=== PATIENT | female | born 1990 | race Caucasian/White ===

== ENCOUNTER 2018-10-28 01:36 | Inpatient (IN) | payer MEDICAID ==
[2018-10-28] VITALS (52 sets, daily range): BP systolic 78–161; BP diastolic 28–117
[~2018-10-28] VITALS: Ht 162.6 cm; Wt 90.7 kg
--- NOTE | 2018-10-28 01:56 | NUR ---
PT [place] FROM [place]. PER RA, WAS WITH BOYFRIEND AND BECAME UNRESPONSIVE. PER RA, POSSIBLE OD ON HEROIN/METH/SOMA OVERDOSE, UNKNOWN AMOUNT. NOTED DILATED, FIXED PUPILS. NOTED SHALLOW RESPIRATIONS. PT PLACED ON CONTINUOUS PUBLIC ADMINISTRATION PROFESSOR, AT BEDSIDE.
--- NOTE | 2018-10-28 01:58 | NUR ---
MD AND RT AT BEDSIDE FOR INTUBATION Addendum: 10/28/18 at 0301 by MARSHA VENT SETTINGS: RATE:18 TIDAL VOLUME: 450 O2: 100% PEAK: 50 PEEP: 5
--- NOTE | 2018-10-28 01:59 | NUR ---
HOUSE SUP CALLED FOR BED REQUEST
[2018-10-28] MEDS ORDERED: PROPOFOL 100 ML ONE (02:04)
--- NOTE | 2018-10-28 02:23 | NUR ---
16FR neil catheter inserted per sterile protocal. Immediate output 50ML of urine, color STRAW, clarity CLEAR. URINE SPECIMEN OBTAINED AND SENT TO THE LAB.
--- NOTE | 2018-10-28 02:25 | NUR ---
PT ORALLY INTUBATED WITH 7.5 ETT SECURED @ 23 CM AT THE LIP ON VENT WITH SETTINGS OF AC18 VT450 PEEP+5 100%. COLOR CHANGE ON CO2 DETECTOR ALONG WITH BILATERAL CHEST RISE AND EQUAL BREATH SOUNDS. NO SIGNS OF RESPIRATORY DISTRESS NOTED AT THIS TIME. SUCTIONED MODERATE AMOUNT OF WHITE THICK SECRETIONS. VENT PLUGGED INTO RED OUTLET. VENT ALARMS SET AND AUDIBLE. AMBU BAG AT BEDSIDE. WILL CONTINUE TO MONITOR THE PT. WAITING ON FURTHER ORDERS. Addendum: 10/28/18 at 0244 by FLASH LOVETT RT Amended: Links added.
--- NOTE | 2018-10-28 02:29 | NUR ---
POISON CONTROL CONTACTED AND SPOKE TO GLADIS, WAS INFORMED TO CONTINUE SUPPORTIVE CARE W/ LAB DRAW FOR CBC, CMP, ASA, URINALYSIS AND TOX SCREEN. NO FURTHER ADVICE FOR TREATMENT GIVEN AT THIS TIME. MADE AWARE
[2018-10-28] MEDS ORDERED: SUCCINYLCHOLINE CHLORIDE 20 MG/ML VIAL IV ONE (02:30)
[2018-10-28] MEDS ORDERED: IV NS 0.9% 1,000 ML BAG IV ONE (02:30)
[2018-10-28] MEDS ORDERED: PROPOFOL 1,000 MG/100 ML BOTTLE IV ONE (02:30)
[2018-10-28] MEDS ORDERED: ETOMIDATE 2 MG/ML VIAL IV ONE (02:30)
[2018-10-28] MEDS ORDERED: FAMOTIDINE/PF INJ 20 MG/2 ML VIAL IV ONE ×2 (02:30→02:31)
--- NOTE | 2018-10-28 02:30 | NUR ---
BLOOD DRAWN BY MANAGER HOSP[facility].
[2018-10-28 02:42] LABS: APPEARANCE,URINE CLEAR (CLEAR); BILIRUBIN,URINE NEGATIVE (NEGATIVE); BLOOD, URINE NEGATIVE Ery/uL (NEGATIVE); COLOR,URINE YELLOW (YELLOW); HEMATOCRIT 38 % (33-45); HEMOGLOBIN 12.9 g/dL (11.5-14.8); KETONES,URINE 1+ (NEGATIVE); LEUKOCYTE ESTERASE ,URINE TRACE (NEGATIVE); LYMPHOCYTES # (AUTO) 2.3 /CMM (0.8-4.8); LYMPHOCYTES % (AUTO) 65.6 % (20.0-44.0); MEAN CORPUSCULAR HGB CONC 34 g/dl (31.0-36.0); MEAN CORPUSCULAR VOLUME 86 fL (82-100); MONOCYTES # (AUTO) 0.3 /CMM (0.1-1.30); MONOCYTES % (AUTO) 7.9 % (2.0-12.0); NEUTROPHILS # (AUTO) 0.8 /CMM (1.8-8.9); NEUTROPHILS % (AUTO) 21.5 % (43.0-81.0); NITRITE, URINE NEGATIVE (NEGATIVE); PH,URINE 5.5 (5.0-8.0); PLATELET COUNT (AUTO) 256 /CMM (150-450); PROTEIN,URINE NEGATIVE (NEGATIVE); UGLUCOSE NEGATIVE (NEGATIVE); UROBILINOGEN,URINE 0.2 EU/dL (0.2); WHITE BLOOD COUNT (AUTO) 3.6 K/uL (4.3-11.0)
[2018-10-28 02:53] LABS: CALCIUM, SERUM 8.5 mg/dL (8.5-10.1); CARBON DIOXIDE 23 mmol/L (21-32); CHLORIDE 104 mmol/L (98-107); CREATININE 0.7 mg/dL (0.6-1.3); GLUCOSE 85 mg/dL (74-106); POTASSIUM 3.4 mmol/L (3.5-5.1); SODIUM SERUM 143 mmol/L (136-145); UREA NITROGEN, BLOOD 12 mg/dL (7-18)
--- NOTE | 2018-10-28 02:53 | NUR ---
GUADALUPE CALLED. DR CHAHAL
[2018-10-28 02:55] LABS: BACTERIA,URINE Moderate /HPF (None Seen); RBC,URINE 0-2 /HPF (0-2); SQUAMOUS EPITHELIAL CELL,UR Few /HPF (None Seen)
[2018-10-28 02:57] LABS: CREATINE KINASE, TOTAL 86 U/L (26-192)
--- NOTE | 2018-10-28 02:58 | NUR ---
Jacbo ann in [facility] - 10/28/18 at 0258 by MARSHA MD AND RT AT BEDSIDE FOR INTUBATION
[2018-10-28 02:59] LABS: ALANINE AMINOTRANSFERASE 25 U/L (12-78); ALBUMIN 3.4 g/dL (3.4-5.0); ALCOHOL, BLOOD < 3 mg/dL (0-0); ALKALINE PHOSPHATASE 59 U/L (46-116); ASPARTATE AMINOTRANSFERASE 19 U/L (15-37); BILIRUBIN,DIRECT 0.1 mg/dL (0.0-0.2); BILIRUBIN,TOTAL 0.2 mg/dL (0.2-1.0); TOTAL PROTEIN, SERUM 7.3 g/dL (6.4-8.2)
[2018-10-28 03:00] LABS: ACETAMINOPHEN 0 ug/ml (10-30); SALICYLATE 1.6 mg/dL (2.8-20.0)
--- NOTE | 2018-10-28 03:00 | NUR ---
RT AT BEDSIDE FOR ABG
--- NOTE | 2018-10-28 03:28 | NUR ---
GAVE REPORT TO ED RN FOR AMANDA
[2018-10-28] MEDS ORDERED: MAG HYDROX/AL HYDROX/SIMETH 30 ML UDC PO PRN (03:30)
[2018-10-28] MEDS ORDERED: Z GUARD REMEDY 2 OZ OINT TP PRN (03:30)
[2018-10-28] MEDS ORDERED: HYDROCODONE/APAP 5/325MG 1 EACH TABLET PO PRN (03:30)
[2018-10-28] MEDS ORDERED: MAGNESIUM HYDROXIDE 30 ML UDC PO PRN (03:30)
[2018-10-28] MEDS ORDERED: ZOLPIDEM TARTRATE 5 MG TABLET PO PRN (03:30)
[2018-10-28] MEDS ORDERED: ACETAMINOPHEN 325 MG TABLET PO PRN (03:30)
[2018-10-28 03:38] LABS: ABG BASE EXCESS -4.6 mmol/L; ABG OXYGEN SATURATION 99.2 % (92.0-98.5); ABG PCO2 36.1 mmHg (35.0-45.0); ABG PH 7.364 (7.350-7.450); AaDO2 166.9 mmHg; COHb 0.3 % (0.5-1.5); MetHb 0.5 % (0.0-1.5); O2Hb 98.4 % (94.0-97.0); SITE, ABG Left Brachial; VENT MODE, BG AC 18 450 +5 100%
--- NOTE | 2018-10-28 03:42 | NUR ---
COLBY CALLED TO READ RADIOLOGY REPORT
--- NOTE | 2018-10-28 03:55 | NUR ---
PT TRANSFERRED TO ICU BED 253 PER ACLS PROTOCOL
[2018-10-28] MEDS: IV NS 0.9% 1,000 ML IV SCH ×3 (04:04→19:34)
[2018-10-28] MEDS: PROPOFOL 100 ML IV PRN ×8 (04:45→22:21)
--- NOTE | 2018-10-28 05:14 | NUR ---
FIELD RADIO OPERATOR PT WAS ADMITTED FROM ER WITH DIAGNOSIS DRUG OD, RESPIRATORY FAILURE, ACUTE TOXIC ENCEPHALOPATHY. DRUG SCREEN POSITIVE FOR OPIATES, AMPHETAMINE, BENZODIAZEPINES, CANNABINOIDS & GHB. PUPILS 3 MM. REACTIVE. MOVES ALL EXTREMITIES, LEGS ARE WEAK.PT IS ON VENTILATOR AC MODE. VSS, AFEBRILE, SCOPE-SR. NGT TO LIS, F/C DRAINS SUFFICIENT AMT. OF CLEAR STRAW COLOR URINE. MAIN IV NS @ 150 ML/H, PT IS SEDATED WITH PROPOFOL DRIP. IV SITES INTACT. SOFT WRIST RESTRAINTS ON. WILL CONTINUE CLOSE MONITORING.
--- NOTE | 2018-10-28 06:10 | NUR ---
PT GOT SEVERE AGITATED. PULLED OUT IV ON RIGHT HAND. PROPOFOL DRIP IS ALREADY TITRATED TO MAX 50 MCG/KG/MIN. SOFT WRIST RESTRAINTS ON. M-D WAS CALLED. HE ORDERED TO TITRATE PROPOFOL DRIP UP TO 100 MCG/KG/MIN & ORDERED TO INSERT MIDLINE /PT IS HARD STICK/.
--- NOTE | 2018-10-28 07:45 | NUR ---
DELI DEPARTMENT MANAGER: pt.is deeply sedated now with 100mcg/kg/m Diprivan, had severe agitated reactions, reactive by pain now, will decrease gtt rate and observe, SR, SBP over 100 below 150, O2sat.0ver 98% on 40% FiO2, ETT 1 cm above awais/will s/w needle control cheniller, K+3.4, charge nurse is in room/updated, 3 rings were removed and placed in pt.bag/noted in form, NGT to LIS/light brown secretion
--- NOTE | 2018-10-28 07:50 | NUR ---
CHARGE AUDITOR: waiting midline placement by report
[2018-10-28] MEDS ORDERED: SUCCINYLCHOLINE CHLORIDE 20 MG/ML VIAL ONE (08:52)
[2018-10-28] MEDS ORDERED: ETOMIDATE 2 MG/ML VIAL ONE (08:52)
--- NOTE | 2018-10-28 09:20 | NUR ---
RHIC SYSTEMS SAFETY ENGINEER: is in room, notified re pt.current status, history, charge nurse confirmed: no cardiac/respiratory arrest with admission, VS, sedation level, O2sat., severe agitated episodes, ordered: adjust ETT position by pull 2 cm out
--- NOTE | 2018-10-28 09:22 | NUR ---
SPOKE WITH RN AT 9:15 AM. PATIENT UNSTABLE TO COME DOWN. RN WILL CALL RADIOLOGY.
--- NOTE | 2018-10-28 09:30 | NUR ---
BLANKER OPERATOR: plan by : keep pt.sedated well with suction on AC mode today, will wean tomorrow
--- NOTE | 2018-10-28 09:55 | NUR ---
DIRECTOR OF ASSESSING: pt.is able to open eyes spontaneously, restless, ST 100-110, pt.friends are in room/notified: don't touch pt., increased Diprivan sedation to 90 mcg/kg/m, RT is notified re ETT pull out 2 cm order
[2018-10-28] MEDS: POTASSIUM CL. PREMIX PERIPHER. 50 ML IV SCH ×2 (11:11→12:21)
--- NOTE | 2018-10-28 11:30 | NUR ---
PERFORMING ARTS TECHNICIANS: is in room, updated with pt.sedation level, history, VS, agitated episodes, IVF, IV access, order for SIMV/wean tomorrow, ordered: Ativan 1 mg q4h IV prn for agitation. Pt.is unable to be transfer for CT now, high sedation level/AC mode, RT adjusted ETT/22 cm at lips now
--- NOTE | 2018-10-28 12:00 | NUR ---
RT NOTES ETT PULLED BACK 2CM PER DR. HORNE REQUEST. 7.5 ETT AT 23CM AT THE LIP INITIALLY. PULLED BACK 2CM. ETT NOW AT 21CM AT THE LIP. BILAT.B/S AUSCULTATED.
[2018-10-28] MEDS: LORAZEPAM INJ 2 MG/ML VIAL IV PRN ×2 (12:57→19:17)
--- NOTE | 2018-10-28 14:17 | NUR ---
FOLLOWED UP WITH RN AT 1405, PATIENT STILL UNSTABLE FOR CT
--- NOTE | 2018-10-28 15:00 | NUR ---
ETL APPLICATION DEVELOPER: unable to do PM/bedbath care now, pt.is on max Diprivan rate, got Ativan, but easy to get severe restless with any activity, have had attempts to touch ETT, SR/ST max 110, SBP over 100 below 150, O2sat. over 98%, GT to LIS still with brownish secretion, no blood, radiology department updated with pt.condition, plan: SIMV mode tomorrow, notified RT.
--- NOTE | 2018-10-28 17:37 | NUR ---
GOLF CLUB WEIGHER: pt.is sedated with 90 mcg/kg/m Diprivan now, rest, but easy to show activity/coughing with touch/suction, SR/ST max 105, SBP over 100, O2sat. over 98%, no SOB, PM/skin care/bedbath is done, pt.mother is in room/notified re pt.current condition, DO status, VS, sedation, orders, POC, spoke with charge nurse too.
--- NOTE | 2018-10-28 19:00 | NUR ---
REFRIGERATING TECHNICIAN NOTES RECEIVED PATIENT ORALLY INTUBATED ,TO THE VENTILATOR ON AC MODE,SEDATED WITH PROPOFOL DRIP (MCG/KG/MIN) BUT STILL OCCASIONALLY GETS AGITATED.ON BILATERAL SOFT WRIST RESTRAINTS. NOT IN ANY DISTRESS,MOVES ALL EXTREMITIES.NGT TO LIWS .COMFORT CARE DONE.WILL CLOSELY MONITOR ,PRN SEDATION NEEDED.
--- NOTE | 2018-10-28 19:33 | NUR ---
Asha Stark spoke with SUZAN Matute, patient will be extubated on 10-29-[address] head without will probably be perform. Order still active and awaiting for RN to call when pt. is ready.
--- NOTE | 2018-10-28 22:00 | NUR ---
FAMILY AT BEDSIDE,UPDATED ON PATIENT'S STATUS. PATIENT REMAINS SEDATED ,STILL OCCASIONALLY WAKES UP AND TRIES TO GE OFF RESTRAINTS.
[2018-10-29] VITALS (33 sets, daily range): BP systolic 93–153; BP diastolic 49–74
--- NOTE | 2018-10-29 00:05 | NUR ---
SALES AGENT FINANCIAL REPORT SERVICE NOTES ATTEMPTED TO GO DOWN ON PROPOFOL DRIP TO 80 MCG/KG/MIN. BUT PATIENT AWAKENS EASILY RIGHT AWAY,MOVING AND TRYING TO GET OFF RESTRAINTS.
[2018-10-29] MEDS: PROPOFOL 100 ML IV PRN ×4 (00:37→07:22)
[2018-10-29] MEDS: IV NS 0.9% 1,000 ML IV SCH ×2 (02:06→07:22)
--- NOTE | 2018-10-29 03:30 | NUR ---
SLOWLY TITRATING DOWN ON PROPOFOL TOLERATED.V/S REMAINS STABLE.
--- NOTE | 2018-10-29 04:00 | NUR ---
PROPOFOL DRIP NOW AT 70 MCG/KG/MIN.WAKING UP AND MOVING EXTREMITIES BUT NOT AGITATED.
[2018-10-29 05:26] LABS: BASOPHILS % (AUTO) 0.3 % (0.0-2.0); HEMATOCRIT 35 % (33-45); LYMPHOCYTES # (AUTO) 0.9 /CMM (0.8-4.8); LYMPHOCYTES % (AUTO) 9.3 % (20.0-44.0); MEAN CORPUSCULAR HGB CONC 35 g/dl (31.0-36.0); MEAN CORPUSCULAR VOLUME 86 fL (82-100); MONOCYTES # (AUTO) 0.4 /CMM (0.1-1.30); MONOCYTES % (AUTO) 4.6 % (2.0-12.0); NEUTROPHILS # (AUTO) 8.1 /CMM (1.8-8.9); NEUTROPHILS % (AUTO) 85.8 % (43.0-81.0); PLATELET COUNT (AUTO) 231 /CMM (150-450); RED BLOOD CELL COUNT(AUTO) 4.05 MIL/uL (4.0-5.2); WHITE BLOOD COUNT (AUTO) 9.4 K/uL (4.3-11.0)
[2018-10-29 05:43] LABS: CALCIUM, SERUM 7.9 mg/dL (8.5-10.1); CREATININE 0.4 mg/dL (0.6-1.3); MAGNESIUM 1.8 mg/dL (1.8-2.4); POTASSIUM 3.2 mmol/L (3.5-5.1)
--- NOTE | 2018-10-29 06:00 | NUR ---
MORE RESTLESS,KICKING LEGS AND TRYING TO LIFT BOTH ARMS.PROPOFOL DRIP BACK TO 75 MCG/KG/MIN.
--- NOTE | 2018-10-29 07:00 | NUR ---
REPORT GIVEN TO CESAR MARES.
--- NOTE | 2018-10-29 07:05 | NUR ---
AEROSPACE ASSEMBLER INITIAL NOTES RECEIVED PT IN RESTING IN BED. NO SOB OR ACU5TE SIGNS OF DISTRESS NOTED. BREATHING IS EVEN AND UNLABORED. PT INTUBATED. VENT SETTINGS CHECKED FOR ACCURACY. ( AC 18, TV 450, FI02 40%, PEEP 5). PT TOLERATING SETTINGS WELL. PT ON PROPOFOL DRIP INFUSING AT 70MIC/HR. PT MILDLY AGITATED, HOWEVER ABLE TO FOLLOW COMMANDS. IV TO RIGHT HANG AND LEFT EJ NOTED TO BE PATENT AND INTACT. NO REDNESS OR SIGNS CORY INFILTRATION NOTED. BED IN LO LOCKED POSITION, SIDE RAILS UP X3, CALL LIGHT WITHIN REACH. WILL CONTINUE TO MONITOR
[2018-10-29] MEDS ORDERED: DC PROPOFOL WHEN EXTUBATED XX PRN (08:00)
--- NOTE | 2018-10-29 08:45 | NUR ---
ROLL COATING MACHINE OPERATOR NOTES: PROPOFOL ADMINISTRATION PROPIODAL DRIP TURNED OFF PER DR. HORNE'S ORDER. WI SCHEDULED TO BE EXTUBATION. PT MILDLY AGITATED, ON BILATERAL SOFT WRIST RESTRAINTS FOR SELF EXTUBATION PREVENTION. PT ABLE TO FOLLOW SIMPLE COMMANDS. RT TO INITIATE SIMV MODE.
[2018-10-29] MEDS: ONDANSETRON HCL/PF 4 MG/2 ML VIAL IVP PRN (08:50)
--- NOTE | 2018-10-29 09:10 | NUR ---
WELDING MACHINE OPERATOR ARC NOTES: THERMO REGULATION PT HAD A TEMP OF 100.1. COOLING MEASURES INITIATED. ACETAMINOPHEN ADMINISTERED. TEMP RECHECKED AND IS NOW 98.9.
[2018-10-29 09:45] LABS: ABG BASE EXCESS -2.2 mmol/L; ABG OXYGEN SATURATION 97.2 % (92.0-98.5); ABG PCO2 28.6 mmHg (35.0-45.0); ABG PH 7.471 (7.350-7.450); ABG PO2 99.8 mmHg (75.0-100.0); AaDO2 152.5 mmHg; COHb 0.3 % (0.5-1.5); MetHb 0.7 % (0.0-1.5); O2Hb 96.2 % (94.0-97.0); SITE, ABG Right Radial
--- NOTE | 2018-10-29 09:50 | NUR ---
RECAPPER NOTES: EXTUBATION PT S/P EXTUBATION AT 0950. VSS. PT ON 4 L VIA NC AND SATING WELL AT 96%. RR EVEN AND UNLABORED.
--- NOTE | 2018-10-29 09:50 | NUR ---
RT PER DR DODD ORDER PATIENT WAS WEANED + EXTUBATED AND PLACED ON SUPPLEMENTAL O2 AKI WELL. PATIENT AWAKE, ALERT, NO SOB NOTED.
[2018-10-29] MEDS ORDERED: POTASSIUM CL. PREMIX PERIPHER. 50 ML IV SCH (11:01)
[2018-10-29] MEDS ORDERED: POTASSIUM CHLORIDE 20 MEQ POWDER PACKET NG ONE (11:38)
[2018-10-29] MEDS: CEFTRIAXONE 1 G in IV D5W 50 ML IV SCH (12:03)
--- NOTE | 2018-10-29 16:11 | NUR ---
RN NOTE Obtained order for crisis team consult. Informed [facility] for psyche consult. Faxed face sheet and verified in the unit. Dr. Shields is information architect.
[2018-10-29] MEDS: IV NS 0.9% 1,000 ML IV PRN (17:14)
--- NOTE | 2018-10-29 19:05 | NUR ---
CHAIN SPLITTER CLOSING NOTES PT REMAINS STABLE S/P EXTUBATION. PT CURRENTLY OMN RA AND SATING WELL AT 96%. NO ACUTE CHANGES IN CONDITION DURING SHIFT. SAFETY PRECAUTIONS REMAIN IN PLACE. INVASIVE LINES REMAIN PATENT AND INTACT. WILL ENDORSE TO SUZAN BOWMAN FOR AMANDA.
--- NOTE | 2018-10-29 19:30 | NUR ---
JUNCTION MAKER NOTE PT RECEIVED AWAKE AND ALERT. A/O X3 AND ABLE TO MAKE NEEDS KNOWN. ON ROOM AIR AND SATURATING WELL. BREATHING REGULAR AND UNLABORED. NOTED WITH NONPRODUCTIVE COUGH. HOB ELEVATED AND ON ASPIRATION PRECAUTIONS. IV CLEAN WITH NS INFUSING @75ML/HR. NO C/O PAIN OR DISCOMFORT AT THIS TIME. CALL LIGHT WITHIN REACH. WILL MONITOR.
[2018-10-30] VITALS (21 sets, daily range): BP systolic 96–123; BP diastolic 42–76
[2018-10-30] MEDS: ONDANSETRON HCL/PF 4 MG/2 ML VIAL IVP PRN ×2 (02:01→08:16)
--- NOTE | 2018-10-30 02:30 | NUR ---
MALWARE ANALYST NOTE PT NOTED WITH EMESIS X1 AND ZOFRAN 4MG IVP WAS GIVEN. NOTED WITH 3 EPISODES OF DIARRHEA AND SPECIMEN FOR CDIFF SENT TO LAB. WILL MONITOR.
[2018-10-30] MEDS: LORAZEPAM INJ 2 MG/ML VIAL IV PRN ×2 (03:07→22:58)
[2018-10-30 04:47] LABS: BASOPHILS % (AUTO) 0.3 % (0.0-2.0); EOSINOPHILS % (AUTO) 0.1 % (0.0-6.0); HEMATOCRIT 35 % (33-45); HEMOGLOBIN 11.9 g/dL (11.5-14.8); LYMPHOCYTES # (AUTO) 1.1 /CMM (0.8-4.8); LYMPHOCYTES % (AUTO) 11.3 % (20.0-44.0); MEAN CORPUSCULAR HGB CONC 34 g/dl (31.0-36.0); MEAN CORPUSCULAR VOLUME 87 fL (82-100); MONOCYTES # (AUTO) 0.4 /CMM (0.1-1.30); NEUTROPHILS # (AUTO) 8.1 /CMM (1.8-8.9); NEUTROPHILS % (AUTO) 84.3 % (43.0-81.0); PLATELET COUNT (AUTO) 211 /CMM (150-450); RED BLOOD CELL COUNT(AUTO) 4.05 MIL/uL (4.0-5.2); WHITE BLOOD COUNT (AUTO) 9.6 K/uL (4.3-11.0)
[2018-10-30 04:50] LABS: CALCIUM, SERUM 7.8 mg/dL (8.5-10.1); CREATININE 0.5 mg/dL (0.6-1.3); MAGNESIUM 1.8 mg/dL (1.8-2.4); PHOSPHORUS 2.2 mg/dL (2.5-4.9); POTASSIUM 2.9 mmol/L (3.5-5.1)
[2018-10-30] MEDS: IV NS 0.9% 1,000 ML IV PRN ×2 (06:43→22:55)
[2018-10-30] MEDS ORDERED: POTASSIUM CHLORIDE 20 MEQ POWDER PACKET PO ONE (07:30)
--- NOTE | 2018-10-30 07:40 | NUR ---
ALTERATIONS WORKROOM CLERK NOTE PT NOTED WITH ANOTHER EPISODE OF EMESIS. CLEANED PT. ALL NEEDS ATTENDED TO PROMPTLY. CRITICAL LAB POTASSIUM 2.9. SPOKE WITH MAIL EXAMINER GARY INTERNATIONAL SALES MANAGER WITH ORDERS FOR POTASSIUM 60 MEQ PO X1. ORDERS NOTED AND CARRIED OUT. CALL LIGHT WITHIN REACH. WILL ENDORSE TO NEXT SHIFT FOR CONTINUITY OF CARE.
[2018-10-30] MEDS ORDERED: K PHOS NEUTRAL 250 MG TABLET PO ONE (09:30)
[2018-10-30] MEDS: CLONIDINE HCL 0.1 MG TABLET PO SCH ×3 (09:30→21:57)
--- NOTE | 2018-10-30 09:30 | NUR ---
ICU/RN: 0930 Clonidine dose held; current anti-emetic regimen effective; pt noted with bradycardia from 50-60's.
[2018-10-30] MEDS ORDERED: HALOPERIDOL LACTATE INJ 5 MG/ML VIAL IM ONE (10:00)
[2018-10-30 10:13] LABS: AMYLASE 40 U/L (25-115); LIPASE 152 U/L (73-393)
--- NOTE | 2018-10-30 10:15 | NUR ---
ICU/RN: Pt withdrawn, low energy levels, poor appetite, does not complain of any discomfort. Denies SI. Provided support however pt remains minimally interactive. Safety measures in place. Will cont to monitor pt.
[2018-10-30] MEDS: CEFTRIAXONE 1 G in IV D5W 50 ML IV SCH (11:45)
[2018-10-30] MEDS: LOPERAMIDE HCL (2 MG CAP) 2 MG CAPSULE PO PRN ×2 (11:45→16:12)
--- NOTE | 2018-10-30 14:15 | NUR ---
ICU/RN: Face sheet faxed to GPS to f/u Psych consult with Dr Shields. Per GPS elementary secretary, to kenyetta gonzales.
--- NOTE | 2018-10-30 16:25 | NUR ---
ICU/RN: Assisted pt with hygienic care, noted with large FRANCISCO bruise, R periorbital light bruising. Asked pt whether she had a recent history of falls, pt denies, closes eyes, goes back to sleep. Pt remains guarded and withdrawn, but compliant with care. Safety measures in place. launch steward and CM updated. Will f/u with social work msw.
--- NOTE | 2018-10-30 17:25 | NUR ---
RN NOTES RECEIVED PATIENT FROM ICU, TRANSFERRED VIA ACLS PROTOCOL ACCOMPANIED MARY SULLIVAN RN AND DAWITRN. PATIENT WITH CLOSE EYE BUT IS RESPONSIVE, BARELY ANSWERS QUESTION VERBALLY BUT FOLLOWS COMMAND. ON ROOM AIR, BREATHING EVEN AND UNLABORED. NO S/S OF SHORTNESS OF BREATHE NOTED. NOTED WITH FRANCISCO BRUISE AND R PERIORBITALLIGHT BRUISING. NO COMPLAINTS OF PAIN NOTED. TELEMONITOR ATTACHED TO PATIENT; SR WITH HR ON THE 80'S. VITAL SIGNS TAKEN AND NOTED FOLLOWS: BP AT 120/86, TEMP AT 98.1, RR AT 18, SATING AT 98%. IV TO THE R HAND G 20 AND L EXTERNAL JUGULAR. WITH NS RUNNING AT 75CC/HR. PATIENT MADE COMFORTABLE. ORIENTED TO THE UNIT AND THE USE OF CALL LIGHT. SAFETY MEASURES PUT IN PLACE. WILL CONTINUE TO MONITOR PATIENT
--- NOTE | 2018-10-30 17:25 | NUR ---
ICU/RN: Pt transferred to [facility] without incident. Bedside report given to SUZAN Zimmerman. Pt's mother notified of transfer per pt request.
--- NOTE | 2018-10-30 19:25 | NUR ---
RN NOTES ENDORSED PATIENT FOR CONTINUITY OF CARE. NO CHANGES THROUGHOUT THE SHIFT. NOT ON ANY FORM OF DISTRESS. ALL NEEDS ANTICIPATED AND MET. CALL LIGHT WITHIN REACH. SAFETY PRECAUTIONS IN PLACE AT ALL TIMES
--- NOTE | 2018-10-30 19:30 | NUR ---
RN TRAUMA INITIAL NOTES Patient in bed, awake. Stable oxygen saturation on RA, sinus rhythm on the tele monitor. Patient is A/O x3, denies pain. Maintained safety, mother at the bedside. Will cont to monitor.
[2018-10-30] MEDS: DIVALPROEX SODIUM 250 MG TABLET.DR PO SCH (20:54)
[2018-10-30] MEDS: SERTRALINE HCL 50 MG TABLET PO SCH (20:55)
[2018-10-31 00:13] VITALS: BP 111/53
[2018-10-31 04:16] VITALS: BP 123/81
[2018-10-31] MEDS: CLONIDINE HCL 0.1 MG TABLET PO SCH ×2 (05:06→12:49)
--- NOTE | 2018-10-31 06:20 | NUR ---
ROTATING EQUIPMENT SPECIALIST CLOSING NOTES Patient in bed, ambulates with assist one person. Stable oxygen saturation on RA, denies shortness of breath. Sinus rhythm on the tele monitor. Generalized body pain controlled with PRN norco. IVF infusing, maintained at 75ml/hr. Patient is seen by Dr. Shields/psych for eval. this shift. Patient remains calm and cooperative, compliant with medication. Maintained safety, will endorse to oncoming RN.
[2018-10-31 07:28] LABS: BASOPHILS % (AUTO) 0.4 % (0.0-2.0); EOSINOPHILS % (AUTO) 0.4 % (0.0-6.0); HEMATOCRIT 35 % (33-45); HEMOGLOBIN 11.8 g/dL (11.5-14.8); LYMPHOCYTES % (AUTO) 26.1 % (20.0-44.0); MEAN CORPUSCULAR HGB CONC 34 g/dl (31.0-36.0); MEAN CORPUSCULAR VOLUME 86 fL (82-100); MONOCYTES # (AUTO) 0.4 /CMM (0.1-1.30); MONOCYTES % (AUTO) 5.1 % (2.0-12.0); NEUTROPHILS # (AUTO) 5.2 /CMM (1.8-8.9); PLATELET COUNT (AUTO) 222 /CMM (150-450); RED BLOOD CELL COUNT(AUTO) 4.01 MIL/uL (4.0-5.2); WHITE BLOOD COUNT (AUTO) 7.7 K/uL (4.3-11.0)
[2018-10-31 07:43] LABS: CALCIUM, SERUM 7.7 mg/dL (8.5-10.1); CREATININE 0.5 mg/dL (0.6-1.3); MAGNESIUM 1.7 mg/dL (1.8-2.4); PHOSPHORUS 2.4 mg/dL (2.5-4.9); POTASSIUM 2.9 mmol/L (3.5-5.1)
[2018-10-31 08:00] VITALS: BP 111/57
--- NOTE | 2018-10-31 08:05 | NUR ---
RN NOTES PATIENT ASLEEP, BUT EASILY AROUSED. ALERT AND ORIENTED X4 BREATHING EVEN AND UNLABORED WITH NO DISTRESS NOTED. ON LINING PRINTER HR OF 75. PATIENT DENIES PAIN AT THIS TIME. ASSISTED PATIENT TO RESTROOM. IV SITE INTACT AND PATENT WITH CONTINUOUS FLUIDS ORDERED. ALL SAFETY MEASURES DONE. BED LOW AND LOCKED POSITIONS. WILL CONTINUE TO MONITOR
[2018-10-31] MEDS: SERTRALINE HCL 50 MG TABLET PO SCH (08:59)
[2018-10-31] MEDS: DIVALPROEX SODIUM 250 MG TABLET.DR PO SCH ×2 (08:59→13:28)
[2018-10-31] MEDS: Magnesium 1GM/D5W 100ML PREMIX 100 ML IV SCH ×2 (10:24→11:31)
[2018-10-31] MEDS ORDERED: NEUTRA PHOS 1 POWD.PACKET PO ONE (11:00)
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
[2018-10-31 12:00] VITALS: BP 116/68
[2018-10-31] MEDS: POTASSIUM CHLORIDE 20 MEQ TAB.PRT.SR PO SCH ×3 (12:49→14:31)
[2018-10-31] MEDS: CEFTRIAXONE 1 G in IV D5W 50 ML IV SCH (12:54)
[2018-10-31] MEDS: IV NS 0.9% 1,000 ML IV PRN (14:26)
[2018-10-31 16:00] VITALS: BP 105/68
--- NOTE | 2018-10-31 16:25 | NUR ---
RN NOTES PATIENT REMAINS STABLE WITH NO DISTRESS NOTED. DISCHARGE INSTRUCTIONS PROVIDED TO PATIENT AND MOTHER. VERBALIZED UNDERSTANDING. ALL BELONGINGS WITH PATIENT AND MOTHER. ALL PAPERWORK SIGNED. REMOVED IV, CATH INTACT. SKIN INTACT AND WARM TO TOUCH. PATIENT LEFT THE UNIT AT 1625
== END 2018-10-31 16:27 | disposition home or self-care (01) | DRG 816 ==
LOC: ER 01:38 → ICU 03:33 → TELE1 10-30 17:09 → MEDSG1 10-31 11:44
PROVIDERS: ADMIT Family Medicine; ATTEND Nurse Practitioner Acute Care
PROC: 5A1945Z Respiratory Ventilation, 24-96 Consecutive Hours (ICD-10-PCS; principal; 2018-10-28)
PROC: 0BH17EZ Insertion of Endotracheal Airway into Trachea, Via Natural or Artificial Opening (ICD-10-PCS; principal; 2018-10-28)
DX: T40.1X1A Poisoning by heroin, accidental (unintentional), initial encounter (principal); J96.00 Acute respiratory failure, unspecified whether with hypoxia or hypercapnia; G92 Toxic encephalopathy; Y92.59 Other trade areas as the place of occurrence of the external cause; E87.6 Hypokalemia; N39.0 Urinary tract infection, site not specified; F31.9 Bipolar disorder, unspecified; F11.23 Opioid dependence with withdrawal; F17.200 Nicotine dependence, unspecified, uncomplicated; F15.90 Other stimulant use, unspecified, uncomplicated; F19.90 Other psychoactive substance use, unspecified, uncomplicated; T42.8X1A Poisoning by antiparkinsonism drugs and other central muscle-tone depressants, accidental (unintentional), initial encounter; T43.621A Poisoning by amphetamines, accidental (unintentional), initial encounter; T41.291A Poisoning by other general anesthetics, accidental (unintentional), initial encounter
CPT/HCPCS: 31720; 36415; 36600; 71045-TC; 80048-TC; 80061-TC; 80076-TC; 80305; 81000-TC; 82150-TC; 82550-TC; 82803-TC; 83690-TC; 83735-TC; 84100-TC; 84484-TC; 84702-TC; 84703-TC; 85025-TC; 85730-TC; 87070-TC; 87081-TC; 87086-TC; 87186-TC; 92521; 94003-TC; 94799-TC; G0378; G0480; J0330; J0696; J1630; J2060; J2405; J3475; J3480; J3490; J7030; J7060

== ENCOUNTER 2021-01-30 01:03 | Emergency (ER) | payer MEDICAID, OTHER ==
[~2021-01-30] VITALS: Ht 157.5 cm; Wt 77.1 kg
[2021-01-30] MEDS ORDERED: SULFACETAMIDE 10% OPHTH 15 ML BOTTLE ONE (02:11)
[2021-01-30] MEDS ORDERED: CEPH500C2 PO (02:12)
[2021-01-30] MEDS ORDERED: SULF1TAB48 PO (02:12)
[2021-01-30] MEDS ORDERED: CIPR5DRO LEFTEYE (02:12)
[2021-01-30] MEDS ORDERED: SULFAMETH/TRIMETH 800/160 MG 1 UDTAB TABLET ONE (02:28)
[2021-01-30] MEDS ORDERED: HYDROCODONE/APAP 10/325MG TABLET ONE (02:28)
[2021-01-30] MEDS ORDERED: CEFTRIAXONE 1 G VIAL ONE (02:28)
[2021-01-30] MEDS ORDERED: LIDOCAINE /MPF 1% VIAL 5 ML VIAL ONE (02:29)
[2021-01-30] MEDS ORDERED: CIPROFLOXACIN HCL 0.3% 5 ML BOTTLE LEFTEYE SCH (02:30)
[2021-01-30] MEDS ORDERED: HYDROCODONE/APAP 10/325MG TABLET PO ONE (02:30)
[2021-01-30] MEDS ORDERED: CEFTRIAXONE 1 G VIAL IM ONE (02:30)
[2021-01-30] MEDS ORDERED: SULFAMETH/TRIMETH 800/160 MG 1 UDTAB TABLET PO ONE (02:30)
[2021-01-30 02:39] VITALS: BP 131/77
--- NOTE | 2021-01-30 02:39 | NUR ---
Patient discharged to home in stable condition. Written and verbal after care instructions given. Patient verbalizes understanding of instruction.
== END 2021-01-30 02:39 | disposition home or self-care (01) ==
LOC: ER 01:03
DX: H10.89 Other conjunctivitis (principal); L98.9 Disorder of the skin and subcutaneous tissue, unspecified
CPT/HCPCS: 84703; 96372; 99284; J0696; J3490